=== PATIENT | male | born 2000 | race Caucasian/White ===

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

== ENCOUNTER 2020-01-05 21:18 | Emergency (ER) | payer OTHER, MEDICAID ==
[~2020-01-05] VITALS: Ht 177.8 cm; Wt 95.5 kg
[2020-01-05 21:19] VITALS: BP 133/70
[2020-01-05] MEDS ORDERED: IBUPROFEN 600MG TAB PO ONE (22:00)
--- NOTE | 2020-01-05 23:01 | REPVR ---
PROCEDURE INFORMATION: Exam: XR Right Hand Exam date and time: 01/05/2020 10:29 PM Age: 19 years old Clinical indication: Swelling; Hand; Right; Additional info: Pain TECHNIQUE: Imaging protocol: XR Right hand. Views: 3 or more views. COMPARISON: No relevant prior studies available. FINDINGS: Bones/joints: No fracture. No dislocation. Joint spaces are preserved. Soft tissues: Normal. No soft tissue gas. IMPRESSION: No acute fracture. Electronically signed by: Jess Blum On 01/05/2020 23:01:29 PM
--- NOTE | 2020-01-05 23:02 | REPVR ---
PROCEDURE INFORMATION: Exam: XR Right Forearm Exam date and time: 01/05/2020 10:29 PM Age: 19 years old Clinical indication: Swelling; Hand; Right; Additional info: Pain TECHNIQUE: Imaging protocol: XR Right forearm. Views: 2 views. COMPARISON: No relevant prior studies available. FINDINGS: Bones/joints: Unremarkable. No fracture. Soft tissues: Normal. IMPRESSION: No acute fracture. Electronically signed by: Jess Blum On 01/05/2020 23:02:16 PM
== END 2020-01-05 23:19 | disposition home or self-care (01) ==
LOC: M ED 21:18
DX: S60.511A Abrasion of right hand, initial encounter (principal); W22.8XXA Striking against or struck by other objects, initial encounter; Z79.899 Other long term (current) drug therapy; Y92.9 Unspecified place or not applicable; Y93.9 Activity, unspecified; Y99.9 Unspecified external cause status

== ENCOUNTER 2020-08-25 21:05 | Emergency (ER) | payer OTHER, MEDICAID ==
[~2020-08-25] VITALS: Ht 177.8 cm; Wt 90.0 kg
[2020-08-25 23:19] LABS: HEMATOCRIT 45.1 % (42.0-52.0); HEMOGLOBIN 15.3 g/dl (13.5-17.5); MEAN CORPUSCULAR HEMOGLOBIN 27.9 pg (27.0-33.0); MEAN CORPUSCULAR HGB CONC 33.9 g/dl (32.0-36.5); MEAN CORPUSCULAR VOLUME 82.3 fl (80.0-96.0); PLATELET COUNT, AUTOMATED 264 10^3/uL (150-450); RED BLOOD COUNT 5.48 10^6/uL (4.30-6.10); WHITE BLOOD COUNT 16.8 10^3/uL (4.0-10.0)
[2020-08-25 23:46] LABS: ACETAMINOPHEN LEVEL < 2.0 UG/ML (10.0-30.0); ALBUMIN 4.3 GM/DL (3.2-5.2); ALT/SGPT 27 U/L (12-78); BILIRUBIN,DIRECT 0.2 MG/DL (0.0-0.2); BILIRUBIN,TOTAL 0.9 MG/DL (0.2-1.0); BLOOD UREA NITROGEN 17 MG/DL (7-18); CALCIUM LEVEL 9.6 MG/DL (8.5-10.1); CARBON DIOXIDE LEVEL 29 MEQ/L (21-32); CHLORIDE LEVEL 105 MEQ/L (98-107); CREATININE FOR GFR 0.98 MG/DL (0.70-1.30); ETHYL ALCOHOL (ETHANOL) < 0.003 % (0.000-0.010); GLUCOSE, FASTING 81 MG/DL (70-100); POTASSIUM SERUM 4.1 MEQ/L (3.5-5.1); SALICYLATE LEVEL < 1.7 MG/DL (5.0-30.0); SODIUM LEVEL 140 MEQ/L (136-145); TOTAL PROTEIN 7.8 GM/DL (6.4-8.2)
[2020-08-26 00:31] LABS: AMPHETAMINES LEVEL URINE POSITIVE (NEGATIVE); BARBITURATES URINE NEGATIVE (NEGATIVE); BENZODIAZEPINES URINE NEGATIVE (NEGATIVE); CANNABINOIDS URINE POSITIVE (NEGATIVE); COCAINE METABOLITE URINE NEGATIVE (NEGATIVE); METHADONE URINE NEGATIVE (NEGATIVE); OPIATES URINE NEGATIVE (NEGATIVE); PHENCYCLIDINE URINE NEGATIVE (NEGATIVE)
[2020-08-26 01:06] VITALS: BP 128/76
== END 2020-08-26 01:07 | disposition home or self-care (01) ==
LOC: M ED 21:05
DX: Z13.30 Encounter for screening examination for mental health and behavioral disorders, unspecified (principal); F90.0 Attention-deficit hyperactivity disorder, predominantly inattentive type; G47.00 Insomnia, unspecified; F17.200 Nicotine dependence, unspecified, uncomplicated; F12.10 Cannabis abuse, uncomplicated; Z79.899 Other long term (current) drug therapy

== ENCOUNTER 2020-09-18 03:13 | Inpatient (IN) | payer MEDICAID, OTHER ==
[~2020-09-18] VITALS: Ht 177.8 cm; Wt 88.6 kg
[2020-09-18] MEDS ORDERED: LAMO25TA4 PO (03:22)
[2020-09-18] MEDS ORDERED: ATOM25CA7 PO (03:22)
[2020-09-18] MEDS ORDERED: VYVA40CA3 PO (03:22)
[2020-09-18] MEDS ORDERED: TRAZ1TAB14 PO (03:22)
[2020-09-18] MEDS ORDERED: TOPI25TA10 (03:22)
[2020-09-18 03:46] LABS: HEMATOCRIT 44.5 % (42.0-52.0); MEAN CORPUSCULAR HEMOGLOBIN 28.5 pg (27.0-33.0); MEAN CORPUSCULAR HGB CONC 33.7 g/dl (32.0-36.5); MEAN CORPUSCULAR VOLUME 84.6 fl (80.0-96.0); PLATELET COUNT, AUTOMATED 221 10^3/uL (150-450); RED BLOOD COUNT 5.26 10^6/uL (4.30-6.10); WHITE BLOOD COUNT 9.5 10^3/uL (4.0-10.0)
[2020-09-18 04:02] LABS: HCG, SERUM QUALITATIVE NEGATIVE
[2020-09-18 04:14] LABS: AMPHETAMINES LEVEL URINE POSITIVE (NEGATIVE); BARBITURATES URINE NEGATIVE (NEGATIVE); BENZODIAZEPINES URINE NEGATIVE (NEGATIVE); CANNABINOIDS URINE POSITIVE (NEGATIVE); COCAINE METABOLITE URINE NEGATIVE (NEGATIVE); METHADONE URINE NEGATIVE (NEGATIVE); OPIATES URINE NEGATIVE (NEGATIVE); PHENCYCLIDINE URINE NEGATIVE (NEGATIVE)
[2020-09-18 04:21] LABS: ALBUMIN 4.1 GM/DL (3.2-5.2); ALT/SGPT 41 U/L (12-78); BILIRUBIN,DIRECT 0.2 MG/DL (0.0-0.2); BILIRUBIN,TOTAL 0.5 MG/DL (0.2-1.0); BLOOD UREA NITROGEN 15 MG/DL (7-18); CALCIUM LEVEL 8.9 MG/DL (8.5-10.1); CARBON DIOXIDE LEVEL 29 MEQ/L (21-32); CHLORIDE LEVEL 108 MEQ/L (98-107); CREATININE FOR GFR 0.76 MG/DL (0.70-1.30); ETHYL ALCOHOL (ETHANOL) < 0.003 % (0.000-0.010); GLUCOSE, FASTING 101 MG/DL (70-100); POTASSIUM SERUM 3.7 MEQ/L (3.5-5.1); SALICYLATE LEVEL < 1.7 MG/DL (5.0-30.0); SODIUM LEVEL 142 MEQ/L (136-145); TOTAL PROTEIN 7.6 GM/DL (6.4-8.2)
[2020-09-18 04:22] LABS: ACETAMINOPHEN LEVEL < 2.0 UG/ML (10.0-30.0)
--- NOTE | 2020-09-18 07:25 | REPVR ---
PROCEDURE INFORMATION: Exam: CT Head Without Contrast Exam date and time: 09/18/2020 6:56 AM Age: 20 years old Clinical indication: Injury or trauma; Fall; Concussion/head injury TECHNIQUE: Imaging protocol: Computed tomography of the head without contrast. Radiation optimization: All CT scans at this facility use at least one of these dose optimization techniques: automated exposure control; mA and/or kV adjustment per patient size (includes targeted exams where dose is matched to clinical indication); or iterative reconstruction. COMPARISON: No relevant prior studies available. FINDINGS: Brain: Normal. No hemorrhage. Unremarkable white matter. No mass effect. Cerebral ventricles: No ventriculomegaly. Paranasal sinuses: Visualized sinuses are unremarkable. No fluid levels. Mastoid air cells: Visualized mastoid air cells are well aerated. Bones/joints: Unremarkable. No acute fracture. Soft tissues: Unremarkable. IMPRESSION: No acute intracranial abnormality. Electronically signed by: Angela Gomez On 09/18/2020 07:25:03 AM
[2020-09-18] MEDS ORDERED: TOPI50TA9 PO (12:13)
[2020-09-18] MEDS ORDERED: traZODone 50 MG TAB PO PRN (17:25)
[2020-09-18] MEDS ORDERED: IBUPROFEN 400MG TAB PO PRN (17:25)
[2020-09-18] MEDS ORDERED: NICOTINE 21MG/24HR 1 EA TRANSDERMAL TD SCH (17:25)
[2020-09-18] MEDS ORDERED: MOM 30ML SUSPENSION UDC PO PRN (17:25)
[2020-09-18] MEDS ORDERED: OLANZapine ORAL DISINTEGRATING TAB 5MG PO PRN (17:25)
[2020-09-18] MEDS ORDERED: MAALOX 30 ML SUSP *UDC PO PRN (17:25)
[2020-09-19 06:49] VITALS: BP 125/71
[2020-09-19] MEDS ORDERED: NICOTINE POLACRILEX 2 MG GUM PO PRN (10:55)
--- NOTE | 2020-09-19 11:42 | MHHPEPDOC ---
General Date Of Admission: Sep 18, 2020 Legal Status: 9.39 Chief Complaint I told my friend that I wanted to , but it was to get his attention and I never wanted to ". History of Present Illness HISTORY OF THE PRESENT ILLNESS: Patient is a 20 -year-old , male, who [has been in active treatment for ADHD, but no previous inpatient treatment. He was brought to emergency room after his friend poured 911 due to his comment of wanting to . Patient states that he has been doing fairly well with his ADHD and has been working at [employer] for the past week and has no reason to be so depressed or suicidal. He states that he was talking to his friend in the middle of the night and for some reason, made a comment that he wanted to and his friend called the crisis hotline. He is denying any new stresses denies any clear precipitant. Denies any ongoing depression and denies any suicidal plan, intent or thoughts but admits that he was putting his head to a fan causing some scratches on his forehead.. He is very superficial, but pleasant and animated and smiling appropriately and denies any problems., It is quite possible that there was some underlying issues or crisis thatcould have caused this particular episode. The patient is not willing to elaborate and not willing to discuss this particular issues and became very evasive, but again denies any clear suicidal plan or intent]. Psychiatric Review of Systems Depression (2 or more weeks): suicidal thoughts, other (he is denying any ongoing depression and denies any suicidal plan or intent, but claims he had passing thoughts and he told his friend about this to get his attention) Rasheeda (4 or more days of): denies Psychosis: denies PTSD: denies Anxiety: situational anxiety Past Psychiatric History Previous Psychiatric Diagnosis: [ADHD]. Previous Psychiatric Admissions: [Denies any inpatient treatment]. Suicide Attempts: [Denies any history of suicidal attempt]. Psychiatric Follow-up: [In active treatment]. Psychiatric medications: Vyvanse and trazodone . Past Medical History Medical Problems Denies any Head Injury: No Seizures: No Hospitalizations: No Surgeries: No Family Medical/Psychiatric HX Medical Problems He was adopted at age 5, does not know his biological parents. Medical history Psychiatric Disorders: No Addiction: No Suicide Attemps/Completions: No Addiction History denies Social History Childhood: . Adopted at age 5 Abuse/Trauma: Denies any history of abuse or trauma. Current Living Situation: [Lives with his adopted parents]. Education: [High school]. Employment: [Working at [employer]]. Social Support: Parents. Legal: [No legal history]. Marital: [, Single]. Mental Status Examination General Appearance: appears stated age Build: average Demeanor: average Eye Contact: average Behavior: cooperative Speech: clear, pressured, spontaneous, normal volume Mood: euthymic Affect: full, appropriate, congruent Thought Process: logical/linear Thought Content (Delusions): none reported Thought Content (Other): none reported Thought Content (Aggressive): none reported Perception (Hallucinations): none reported Perception (Other): none reported Cognition (Impairment of): none reported Cognition(Intelligence Est.): average Oriented: Awake, Alert, Oriented times three Insight: fair Judgment: Fair Psychosis: Denies Diagnoses Adjustment disorder with mixed emotion, ADHD A-FIB/CHADSVASC A-FIB History Current/History of A-Fib/PAF?: No Current PO Anticoag Therapy: No Age/Risk Factor Scoring CHADSVASC: CHADSVASC Response (Comments) Value Gender Risk Factor Male 0 Hx of CHF No 0 Hx of HTN No 0 Hx of Stroke/TIA/or VTE No 0 Hx of Diabetes No 0 Hx of Vascular Disease No 0 Total 0 Treatment Treatment ordered: NONE Assessment Doesn't appear to be clinically depressed and doesn't appear to be acutely suicidal. He is been in outpatient follow-up with Dr. Quarles. , We will contact to clarify his current treatment and possibly discharge tomorrow after further lethality evaluation. Initial Treatment Plan 1. Patient was admitted on a 939 status. 2. Complete history was obtained. 3. With patients permission, family will be contacted and database will be expanded. 4. Patients medication regimen will be reviewed and changed accordingly. 5. Patient will be provided with protected environment. 6. Patient will be treated with individual, group, and milieu therapies. 7. Patient will receive supportive psych-education. 8. Discharge planning will commence immediately. 9. Outpatient follow-up treatment will be strongly recommended. 10. The initial treatment plan will focus initially on: * Depression. * Risk for suicide. ESTIMATED LENGTH OF STAY: 2-3 DAYS. TIME SPENT COUNSELING AND COORDINATING INITIAL CARE: 45 minutes. Tobacco Cessation Screen If Patient is a Smoker Patient is a smoker Tobacco Cessation Tx Ordered?: Yes N/A-No Antipsychotics Vital Signs Vital Signs Date Time Temp Pulse Resp B/P (MAP) Pulse Ox O2 Delivery O2 Flow Rate FiO2 09/19/20 06:49 97.1 58 16 125/71 (89) 99 Room Air Medications Scheduled Atomoxetine HCl (Atomoxetine HCl) 25 Mg Capsule, 25 MG PO DAILY, (Reported) Lamotrigine (Lamotrigine) 25 Mg Tablet, 50 MG PO DAILY, (Reported) Lisdexamfetamine Dimesylate (Vyvanse) 40 Mg Capsule, 40 MG PO DAILY, (Reported) Topiramate (Topiramate) 50 Mg Tablet, 75 MG PO DAILY, (Reported) Trazodone HCl (Trazodone HCl) 150 Mg Tablet, 150 MG PO QHS, (Reported) Allergies Coded Allergies: No Known Allergies (Verified , 10/16/02) CL CHEUNG M.D. Sep 19, 2020 11:42
[2020-09-19 16:11] VITALS: BP 159/73
--- NOTE | 2020-09-19 18:41 | HPEPDOC ---
General Date of Admission Sep 18, 2020 at 17:21 Date of Service: Sep 19, 2020 Attending Physician: TIMO NGUYỄN MD Chief Complaint The patient is a 20-year-old male admitted with a reason for visit of Unspecified Depressive Disorder. Source: Patient, RN/ History of Present Illness 20 yo M with a history of ADHD who made a suicidal statement to his friend and his friend called the crisis line and he was brought to the ED. In the ED, he denied any recent feeling of depression, suicidality and reported that he had been doing well with his ADHD and working at [employer] but not sure why at that moment he felt that way and told his friend that statement. Later on physical exam he was found to have bruising on his L forehead from where he had hit his head onto a fan c/f self harming behavior. ED lab evaluation was unremarkable and he was admitted to the [facility] for psychiatric evaluation and optimization. Medicine is consulted for medical evaluation. Home Medications Scheduled Atomoxetine HCl (Atomoxetine HCl) 25 Mg Capsule, 25 MG PO DAILY, (Reported) Lamotrigine (Lamotrigine) 25 Mg Tablet, 50 MG PO DAILY, (Reported) Lisdexamfetamine Dimesylate (Vyvanse) 40 Mg Capsule, 40 MG PO DAILY, (Reported) Topiramate (Topiramate) 50 Mg Tablet, 75 MG PO DAILY, (Reported) Trazodone HCl (Trazodone HCl) 150 Mg Tablet, 150 MG PO QHS, (Reported) Allergies Coded Allergies: No Known Allergies (Verified , 10/16/02) Past Medical History Medical History ADHD Surgical History None Family History Significant Family History: No pertinent family hx Social History * Smoker: other (vapes) Alcohol: occationally Drugs: marijuana (smokes daily) Recent Travel/Sick Contacts: Denies: Recent travel, Recent sick contacts Psychosocial History: Att. deficit disorder A-FIB/CHADSVASC A-FIB History Current/History of A-Fib/PAF?: No Current PO Anticoag Therapy: No Age/Risk Factor Scoring CHADSVASC: CHADSVASC Response (Comments) Value Age Risk Factor Age < 65 years old 0 Gender Risk Factor Male 0 Hx of CHF No 0 Hx of HTN No 0 Hx of Stroke/TIA/or VTE No 0 Hx of Diabetes No 0 Hx of Vascular Disease No 0 Total 0 Treatment Treatment ordered: NONE Reason Anticoagulant not given: Not indicated/[id number] Review of Systems Constitutional: Denies: Chills, Fever, Night Sweats Eyes: Denies: Pain, Vision change ENT: Denies: Head Aches, Ear Pain, Dysphagia Skin: Denies: Rash, Lesions, Breakdown Pulmonary: Denies: Dyspnea, Cough Cardiovascular: Denies: Chest Pain, Palpitations, Orthopnea, Paroxysmal Noc. Dyspnea, Lt Headedness Gastrointestinal: Denies: Nausea, Vomiting, Abdominal Pain, Diarrhea Genitourinary: Denies: Dysuria, Frequency, Incontinence, Retention Hematologic: Denies: Bruising, Bleeding Excessively Endocrine: Denies: Polydipsia, Polyphagia, Polyuria, Heat Intolerance, Cold Intolerance, Other Endocrine Sx Musculoskeletal: Denies: Neck Pain, Back Pain, Joint Pain, Muscle Pain, Spasms Neurological: Denies: Weakness, Numbness, Change in speech, Confusion Psych: Reports: Mood Normal; Denies: Depression, Memory Issues Physical Examination General Exam: Positive: Alert, No Acute Distress Eye Exam: Positive: PERRLA, Conjunctiva & lids normal, EOMI; Negative: Sclera icteric ENT Exam: Positive: Atraumatic, Mucous membr. moist/pink, Pharynx Normal Neck Exam: Positive: Supple; Negative: JVD, thyromegaly Chest Exam: Positive: Clear to auscultation, Normal air movement Heart Exam: Positive: Rate Normal, Regular Rhythm, Normal S1, Normal S2; Negative: Murmurs, Rubs Telemetry: Positive: No significant arrhythmia Abdomen Exam: Positive: Normal bowel sounds, Soft; Negative: Tenderness, Hepatospenomegaly Extremity Exam: Positive: Normal pulses; Negative: Clubbing, Cyanosis, Edema Skin Exam: Positive: Other skin issue (has 3 parallel short line bruises on L forehead); Negative: Rash, Breakdown, Lesion Neuro Exam: Positive: Normal Gait, Normal Speech, Cranial Nerves 3-12 NL, Reflexes 2+ Psych Exam: Positive: Mental status NL, Mood NL, Oriented x 3 Vital Signs Vital Signs Date Time Temp Pulse Resp B/P (MAP) Pulse Ox O2 Delivery O2 Flow Rate FiO2 09/19/20 16:11 99.0 83 16 159/73 (101) 100 Room Air Laboratory Data Microbiology Microbiology 09/18/20 Respiratory Virus Panel (PCR) (ESPERANZA) - Final, Complete Assessment/Plan 20 yo M with a history of ADHD who made a suicidal statement to his friend and his friend called the crisis line and he was brought to the ED and is now admitted to the [facility] for psychiatric evaluation and optimization. Suicidal ideation with c/f self harm behavior: -Plan per primary psych team He has no other identified medical issues at this time. Medicine will sign off. Plan / VTE VTE Prophylaxis Ordered?: No VTE Exclusion Mechanical Proph: Low Risk for VTE VTE Exclusion Pharmacological: At Low Risk for VTE TIMO NGUYỄN MD Sep 19, 2020 18:41
[2020-09-19] MEDS ORDERED: TOPIRAMATE (TopAMAX) 25 MG TAB PO SCH (21:00)
[2020-09-19] MEDS ORDERED: traZODone 50 MG TAB PO SCH (21:00)
[2020-09-20 06:00] VITALS: BP 115/55
--- NOTE | 2020-09-20 09:12 | MHDSPDOC ---
[facility] Discharge Summary Discharge Summary DATE OF ADMISSION: Sep 18, 2020 at 17:21 DATE OF DISCHARGE: 09/20/2020 DISCHARGE DIAGNOSES: 1. . Adjustment disorder with mixed emotion 2. . ADHD REASON FOR ADMISSION: 20-year-old, single male in active treatment for ADHD admitted after he made suicidal comments to his friend, but also caused superfic ial scratch on his forehead by hitting a fan with his head. He is minimizing any intent to harm himself and claims that he was very emotional for some unclear reason and wanted to get his friend's attention and wanted to vent.. He denies any serious depression and claims that he is been doing well with his treatment and has been working at a [employer] and has no reason to kill himself. He is not showing any manic or psychotic symptoms and was very pleasant and appropriate throughout the interview. CONSULTANTS INVOLVED: None TREATMENT AND PROGRESS ON THE UNIT : . He was continued on his outpatient medications except for Vyvanse was seen for supportive therapy and lethality evaluation.. He has no new complaints, maintained good control and continued to deny any suicidal thoughts. HOSPITAL COURSE: The patient is very animated, verbally productive and relevant but somewhat evasive about the clear precipitant. He is a however, anxious to return to work willing to continue his outpatient treatment and strongly denies any suicidal thoughts. DISCHARGE ASSESSMENT: Improved, stable, and not suicidal MENTAL STATUS EXAMINATION ON DISCHARGE: Patient is a 20-year old male, who is , pleasant, cooperative. Speech is productive . Language skills are good. Thought processes including: , Relevant, coherent. Thought content: No suicidal thoughts. Abstract reasoning, and computation: Good. Well organized]. Description of abnormal or psychotic thoughts: None. Judgment: Fair. Insight: Good. Orientation to , oriented. Recent and remote memory: , Good. Attention span and concentration: Good. Language: . Fund of knowledge: . Mood: Euthymic . Affect: Animated and appropriate. MEDICATIONS ON DISCHARGE: - for . Continued his home medications - for . - for . PLAN/FOLLOWUP ARRANGEMENTS: . Continue follow-up with his current outpatient. The amount of time spent in the coordination of care for this patient was approximately 35 minutes. ETOH/Disorder Med Rx ETOH/DRUG DISORDER RX: N/A Vital Signs/I&Os Vital Signs Date Time Temp Pulse Resp B/P (MAP) Pulse Ox O2 Delivery O2 Flow Rate FiO2 09/19/20 16:11 99.0 83 16 159/73 (101) 100 Room Air Laboratory Data Microbiology Microbiology 09/18/20 Respiratory Virus Panel (PCR) (ESPERANZA) - Final, Complete Medications Scheduled Atomoxetine HCl (Atomoxetine HCl) 25 Mg Capsule, 25 MG PO DAILY, (Reported) Lamotrigine (Lamotrigine) 25 Mg Tablet, 50 MG PO DAILY, (Reported) Lisdexamfetamine Dimesylate (Vyvanse) 40 Mg Capsule, 40 MG PO DAILY, (Reported) Topiramate (Topiramate) 50 Mg Tablet, 75 MG PO DAILY, (Reported) Trazodone HCl (Trazodone HCl) 150 Mg Tablet, 150 MG PO QHS, (Reported) Allergies Coded Allergies: No Known Allergies (Verified , 10/16/02) CL CHEUNG M.D. Sep 20, 2020 09:11
== END 2020-09-20 11:00 | disposition home or self-care (01) | DRG 755 ==
LOC: M ED 03:13 → M ED INP 17:21 → M PSY 18:26
PROVIDERS: ADMIT Psychiatry & Neurology Psychiatry; ATTEND Psychiatry & Neurology Psychiatry
DX: F43.23 Adjustment disorder with mixed anxiety and depressed mood (principal); R45.851 Suicidal ideations; F90.9 Attention-deficit hyperactivity disorder, unspecified type; Z79.899 Other long term (current) drug therapy; F17.290 Nicotine dependence, other tobacco product, uncomplicated

== ENCOUNTER → 2020-10-19 | Outpatient (REF) | payer OTHER ==
[~2020-10-19] MED LIST changes: +LAMO25TA4 PO; +TOPI25TA10; +TOPI50TA9 PO; +TRAZ1TAB14 PO; +VYVA40CA3 PO
[2020-10-19 15:10] LABS: GC DNA AMPLIFICATION POSITIVE (NEGATIVE)
== END ==
LOC: M LAB REF 13:34
PROVIDERS: ATTEND Physician Assistant Medical
DX: Z11.3 Encounter for screening for infections with a predominantly sexual mode of transmission (principal)

== ENCOUNTER 2023-10-04 13:45 | Emergency (ER) | payer OTHER ==
[~2023-10-04] VITALS: Ht 180.3 cm; Wt 93.2 kg
[~2023-10-04 13:45] MED LIST changes: +TOPI-21; +TOPI-21 PO; -TOPI50TA9; -TOPI50TA9 PO
[2023-10-04 15:07] LABS: HEMATOCRIT 45.7 % (42.0-52.0); MEAN CORPUSCULAR HEMOGLOBIN 29.1 pg (27.0-33.0); MEAN CORPUSCULAR VOLUME 83.1 fl (80.0-96.0); PLATELET COUNT, AUTOMATED 230 10^3/uL (150-450); WHITE BLOOD COUNT 11.2 10^3/uL (4.0-10.0)
[2023-10-04 15:36] LABS: ETHYL ALCOHOL (ETHANOL) < 0.003 % (0.000-0.010)
[2023-10-04 15:37] LABS: SALICYLATE LEVEL < 3.0 MG/DL (<30)
[2023-10-04 15:38] LABS: ALBUMIN 4.6 G/DL (3.2-5.2); ALKALINE PHOSPHATASE 69 U/L (46-116); ALT/SGPT 26 U/L (7.0-40); AST/SGOT 11 U/L (<34); BILIRUBIN,DIRECT 0.2 MG/DL (<0.4); BILIRUBIN,TOTAL 0.8 MG/DL (0.3-1.2); BLOOD UREA NITROGEN 8 MG/DL (9-23); CARBON DIOXIDE LEVEL 29 MMOL/L (20-31); CHLORIDE LEVEL 103 MMOL/L (98-107); CREATININE FOR GFR 0.81 MG/DL (0.70-1.30); GLOMERULAR FILTRATION RATE > 60.0 (>60); GLUCOSE, FASTING 98 MG/DL (60-100); POTASSIUM SERUM 3.9 MMOL/L (3.5-5.1); SODIUM LEVEL 137 MMOL/L (136-145); TOTAL PROTEIN 7.8 G/DL (5.7-8.2)
[2023-10-04 15:39] LABS: THYROID STIMULATING HORMONE 1.177 uIU/ML (0.55-4.78)
[2023-10-04 15:58] LABS: AMPHETAMINES LEVEL URINE NEGATIVE (NEGATIVE); BARBITURATES URINE NEGATIVE (NEGATIVE); BENZODIAZEPINES URINE NEGATIVE (NEGATIVE); COCAINE METABOLITE URINE NEGATIVE (NEGATIVE); METHADONE URINE NEGATIVE (NEGATIVE); OPIATES URINE NEGATIVE (NEGATIVE); PHENCYCLIDINE URINE NEGATIVE (NEGATIVE)
[2023-10-04 16:00] LABS: CANNABINOIDS URINE POSITIVE (NEGATIVE)
[2023-10-04] MEDS ORDERED: HOME MED LIST COMPLETE! XX SCH (16:30)
[2023-10-04] MEDS: CEPHALEXIN 500 MG CAP PO ONE (16:38)
[2023-10-04] MEDS: BOOSTRIX VACCINE (TETANUS/DIPHTH/ACEL. PERTUSSIS) 0.5ML SYR IM.IMMUN ONE (16:38)
[2023-10-04] MEDS: NICOTINE POLACRILEX 2 MG GUM PO ONE (18:29)
[2023-10-04] MEDS: LORazepam 0.5 MG TAB PO ONE (21:32)
[2023-10-05 13:23] VITALS: BP 148/98; TEMP 97.3; O2SAT 97
== END 2023-10-05 13:45 | disposition home or self-care (01) ==
LOC: M ED 13:45
DX: S51.812A Laceration without foreign body of left forearm, initial encounter (principal); F43.22 Adjustment disorder with anxiety; Z23 Encounter for immunization; R45.88 Nonsuicidal self-harm; F90.9 Attention-deficit hyperactivity disorder, unspecified type; F43.10 Post-traumatic stress disorder, unspecified

== ENCOUNTER → 2023-10-11 | Outpatient (CLI) | payer OTHER ==
[2023-10-11 09:21] LABS: BASO # 0.1 10^3/uL (0.0-0.2); BASO % 0.7 % (0.0-1.0); EOS # 0.2 10^3/uL (0.0-0.5); EOS % 2.7 % (0.0-3.0); HEMATOCRIT 42.2 % (42.0-52.0); HEMOGLOBIN 14.6 g/dl (13.5-17.5); LYMPH # 1.8 10^3/uL (1.5-5.0); MEAN CORPUSCULAR HEMOGLOBIN 28.5 pg (27.0-33.0); MEAN CORPUSCULAR HGB CONC 34.6 g/dl (32.0-36.5); MEAN CORPUSCULAR VOLUME 82.3 fl (80.0-96.0); MONO # 0.5 10^3/uL (0.0-0.8); MONO % 6.2 % (2.0-8.0); NEUTROPHILS # 5.9 10^3/uL (1.5-8.5); NEUTROPHILS % 68.8 % (36.0-66.0); PLATELET COUNT, AUTOMATED 232 10^3/uL (150-450); RED BLOOD COUNT 5.13 10^6/uL (4.30-6.10); WHITE BLOOD COUNT 8.5 10^3/uL (4.0-10.0)
[2023-10-11 09:28] LABS: THYROXINE (T4) 8.2 UG/DL (4.5-10.9)
[2023-10-11 09:29] LABS: THYROID STIMULATING HORMONE 0.779 uIU/ML (0.55-4.78)
[2023-10-11 09:30] LABS: ALBUMIN 4.2 G/DL (3.2-5.2); ALKALINE PHOSPHATASE 59 U/L (46-116); ALT/SGPT 18 U/L (7.0-40); AST/SGOT 11 U/L (<34); BILIRUBIN,TOTAL 0.6 MG/DL (0.3-1.2); BLOOD UREA NITROGEN 10 MG/DL (9-23); CALCIUM LEVEL 8.8 MG/DL (8.5-10.1); CARBON DIOXIDE LEVEL 27 MMOL/L (20-31); CHLORIDE LEVEL 107 MMOL/L (98-107); CREATININE FOR GFR 0.73 MG/DL (0.70-1.30); GLOMERULAR FILTRATION RATE > 60.0 (>60); GLUCOSE, FASTING 102 MG/DL (60-100); POTASSIUM SERUM 3.9 MMOL/L (3.5-5.1); SODIUM LEVEL 140 MMOL/L (136-145)
== END ==
LOC: M LAB 08:22
PROVIDERS: ATTEND Registered Nurse Psychiatric/Mental Health
DX: F43.20 Adjustment disorder, unspecified (principal)

== ENCOUNTER → 2024-06-09 | Outpatient (CLI) | payer OTHER ==
[~2024-06-09] MED LIST changes: +CLON-621; -CLON-627; +LITH450T11 PO; -LITH45TASA PO
[2024-06-09 09:20] LABS: HEMOGLOBIN A1c 4.6 % (4.0-6.0)
[2024-06-09 09:23] LABS: ALBUMIN 4.4 G/DL (3.2-5.2); ALKALINE PHOSPHATASE 87 U/L (40-129); ALT/SGPT 27 U/L (7.0-40); AST/SGOT 22 U/L (<34); BILIRUBIN,TOTAL 1.1 MG/DL (0.3-1.2); BLOOD UREA NITROGEN 11 MG/DL (9-23); CALCIUM LEVEL 9.7 MG/DL (8.5-10.1); CARBON DIOXIDE LEVEL 28 MMOL/L (20-31); CHLORIDE LEVEL 105 MMOL/L (98-107); CHOLESTEROL LEVEL 215 MG/DL (<200); CHOLESTEROL RISK RATIO 6.67 (<5); GLOMERULAR FILTRATION RATE > 60.0 (>60); GLUCOSE, FASTING 91 MG/DL (60-100); HDL CHOLESTEROL 32.2 MG/DL (>40); LDL CHOLESTEROL 158.6 MG/DL (<100); MAGNESIUM LEVEL 1.9 MG/DL (1.8-2.4); NON-HDL-C 182.8 MG/DL; POTASSIUM SERUM 4.7 MMOL/L (3.5-5.1); SODIUM LEVEL 140 MMOL/L (136-145); TOTAL PROTEIN 7.9 G/DL (5.7-8.2); TRIGLYCERIDES LEVEL 121 MG/DL (<150)
[2024-06-09 09:26] LABS: PROLACTIN 2.51 NG/ML (2.1-17.7); THYROID STIMULATING HORMONE 0.743 uIU/ML (0.55-4.78)
== END ==
LOC: M EKG 07:56
PROVIDERS: ATTEND Nurse Practitioner Psychiatric/Mental Health
DX: F31.9 Bipolar disorder, unspecified (principal)